=== PATIENT | female | born 1990 | race Caucasian/White ===

== ENCOUNTER → 2016-06-20 | Outpatient (CLI) | payer OTHER ==
[2016-01-31 16:23] VITALS: BP 110/71
[~2016-06-20] MED LIST: ALPR0.5T6 PO; AMPH5TAB PO; HYDR-2666 PO; PENT100C PO; PHEN-318 PO; [UNRECOGNIZED DRUG - CODE] PO; [UNRECOGNIZED DRUG - OTHER]
[2016-06-20 10:05] LABS: BASO # 0.1 x10^3/uL (0.0-0.2); BASO % 1 % (0-3); EOS % 3 % (0-3); HEMATOCRIT 38.7 % (36.0-47.0); HEMOGLOBIN 13.3 g/dL (12.0-15.5); LYMPH # 3.5 x10^3/uL (1.0-4.8); LYMPH % 43 % (24-48); MEAN CORPUSCULAR HEMOGLOBIN 30 pg (25-35); MEAN CORPUSCULAR HGB CONC 34 g/dL (31-37); MEAN CORPUSCULAR VOLUME 87 fL (79-100); MONO % 10 % (0-9); NEUT % 43 % (31-73); PLATELET COUNT 212 x10^3/uL (140-400); RED BLOOD COUNT 4.45 x10^6/uL (3.50-5.40); RED CELL DISTRIBUTION WIDTH 12.3 % (11.5-14.5); WHITE BLOOD COUNT 8.2 x10^3/uL (4.0-11.0)
[2016-06-20 10:40] LABS: FREE T4 1.05 ng/dL (0.76-1.46)
[2016-06-20 11:08] LABS: ALBUMIN 3.6 g/dL (3.4-5.0); ALBUMIN/GLOBULIN RATIO 1.1 (1.0-1.7); CALCIUM 9.1 mg/dL (8.5-10.1); GFR 67.6; POTASSIUM 4.4 mmol/L (3.5-5.1); TOTAL BILIRUBIN 0.2 mg/dL (0.2-1.0); TOTAL PROTEIN 6.9 g/dL (6.4-8.2)
== END | disposition home or self-care (01) ==
LOC: LAB 09:26
PROVIDERS: ATTEND Internal Medicine
DX: R53.83 Other fatigue (principal)
CPT/HCPCS: 36415; 80053; 82306; 82550; 84439; 84443; 85027; 85651

== ENCOUNTER → 2016-10-14 | Outpatient (CLI) | payer OTHER ==
[2016-01-31 16:23] VITALS: BP 110/71
[~2016-10-14] MED LIST changes: -HYDR-2666 PO; +HYDR-2758 PO
[2016-10-14 16:58] LABS: BASO # 0.1 x10^3/uL (0.0-0.2); BASO % 1 % (0-3); EOS % 1 % (0-3); HEMATOCRIT 39.7 % (36.0-47.0); HEMOGLOBIN 13.2 g/dL (12.0-15.5); LYMPH # 3.4 x10^3/uL (1.0-4.8); LYMPH % 32 % (24-48); MEAN CORPUSCULAR HEMOGLOBIN 30 pg (25-35); MEAN CORPUSCULAR HGB CONC 33 g/dL (31-37); MEAN CORPUSCULAR VOLUME 89 fL (79-100); MONO % 10 % (0-9); NEUT % 57 % (31-73); PLATELET COUNT 252 x10^3/uL (140-400); RED BLOOD COUNT 4.45 x10^6/uL (3.50-5.40); RED CELL DISTRIBUTION WIDTH 12.4 % (11.5-14.5); WHITE BLOOD COUNT 10.7 x10^3/uL (4.0-11.0)
[2016-10-14 17:22] LABS: % SAT IRON 21 % (15-34); IRON,SERUM 88 ug/dL (50-170)
[2016-10-14 17:25] LABS: ALBUMIN 3.7 g/dL (3.4-5.0); ALBUMIN/GLOBULIN RATIO 0.9 (1.0-1.7); CALCIUM 8.8 mg/dL (8.5-10.1); CREATININE 0.8 mg/dL (0.6-1.0); GFR 87.4; POTASSIUM 3.9 mmol/L (3.5-5.1); TOTAL BILIRUBIN 0.2 mg/dL (0.2-1.0); TOTAL PROTEIN 7.7 g/dL (6.4-8.2)
[2016-10-14 17:28] LABS: CHOLESTEROL/HDL RATIO 1.9
[2016-10-14 17:31] LABS: FREE T4 0.96 ng/dL (0.76-1.46)
[2016-10-14 17:32] LABS: FOLATE 17.37 ng/ml (3.2-20.0)
[2016-10-15 06:17] LABS: RHEUMATOID FACTOR <10.0 IU/mL (0.0-13.9)
== END | disposition home or self-care (01) ==
LOC: LAB 16:31
PROVIDERS: ATTEND Internal Medicine
DX: R53.83 Other fatigue (principal)
CPT/HCPCS: 36415; 80053; 80061; 82607; 82728; 82746; 83540; 83550; 84439; 84443; 85027; 85651; 86431

== ENCOUNTER → 2016-11-03 | Outpatient (CLI) | payer OTHER ==
[2016-01-31 16:23] VITALS: BP 110/71
[2016-11-03 14:57] LABS: ALBUMIN 3.9 g/dL (3.4-5.0); ALBUMIN/GLOBULIN RATIO 1.2 (1.0-1.7); CALCIUM 8.8 mg/dL (8.5-10.1); CREATININE 0.8 mg/dL (0.6-1.0); GFR 87.4; MAGNESIUM 1.9 mg/dL (1.8-2.4); POTASSIUM 3.8 mmol/L (3.5-5.1); TOTAL BILIRUBIN 0.3 mg/dL (0.2-1.0); TOTAL PROTEIN 7.2 g/dL (6.4-8.2)
== END | disposition home or self-care (01) ==
LOC: LAB 14:21
PROVIDERS: ATTEND Internal Medicine
DX: M62.838 Other muscle spasm (principal)
CPT/HCPCS: 36415; 80053; 83735

== ENCOUNTER → 2016-11-26 | Outpatient (CLI) | payer OTHER ==
[2016-01-31 16:23] VITALS: BP 110/71
[~2016-11-26] MED LIST changes: +ZOLPIDEM 5 MG TABLET. PO ONE
--- NOTE | 2016-11-27 10:07 | SLEEP ---
DATE OF STUDY: 11/26/2016 ATTENDING PHYSICIAN: Dr. Asuncion Loco. Francisca is 26 years old who weighs 137 pounds with a BMI of 25. The patient's [place] score was only 4. Sleep study was performed at [facility] to rule out MARC. During the night study, the patient spent 410 minutes in bed and slept for 319 minutes, with a sleep efficiency of 78%. Sleep latency was prolonged at 92 minutes, with a REM latency of 90 minutes. Overall, sleep architecture showed normal stage 1 sleep, reduced stage 2 sleep, increased slow wave and increased REM sleep. During the night study, the patient had only 1 obstructive apnea. No mixed or central apneas. There were no hypopneas. The patient's apnea-hypopnea index for the entire night was only 2 per hour, supine index 2 per hour and REM index of 4 per hour. Review of nocturnal oximetry study revealed a mean oxygen saturation of 98% with the lowest of 95%. EKG monitoring revealed normal sinus rhythm. No sustained arrhythmias were observed. Average heart rate was 75 beats per minute. PLMS were seen at index of 9 per hour, and 2 per hour caused EEG arousals. Due to low AHI, the patient did not meet the criteria for CPAP initiation. IMPRESSION: 1. No clinically significant sleep disordered breathing. The patient's AHI for the entire night was 2 per hour. 2. Reduced sleep efficiency, resulting from sleep onset insomnia. 3. Mild PLMS without any significant EEG arousals. This does not need to be treated. 4. No significant nocturnal hypoxia. RECOMMENDATIONS: 1. The patient did not meet the split night criteria for CPAP initiation. 2. The patient's PLMS does not need to be treated, unless the patient has symptoms of restless legs during the day. 3. Avoid LYE TREATER depressants. LYRIC CASTRO MD DR: LIBIA/deshaun JOB#: [id number] / [id number] ASUNCION Cohen MD
== END | disposition home or self-care (01) ==
LOC: SLPLAB 18:43
PROVIDERS: ATTEND Internal Medicine
DX: G47.33 Obstructive sleep apnea (adult) (pediatric) (principal)
CPT/HCPCS: 95810

== ENCOUNTER → 2017-04-23 | Outpatient (CLI) | payer OTHER | END | disposition home or self-care (01) | LOC: CT 12:17 | DX: H70.93 Unspecified mastoiditis, bilateral (principal) | CPT/HCPCS: 70486 ==

== ENCOUNTER 2017-07-22 11:49 | Emergency (ER) | payer OTHER ==
[2017-07-22 12:25] LABS: BILIRUBIN,URINE SMALL (NEG); CLARITY,URINE CLEAR; GLUCOSE,URINE NEGATIVE (NEG); NITRITE,URINE POSITIVE (NEG); PROTEIN,URINE NEGATIVE (NEG-TRACE)
[2017-07-22 12:35] LABS: BACTERIA,URINE MANY /HPF (0-FEW); COLOR,URINE ORANGE; SQUAMOUS EPITHELIAL CELL,UR MOD /LPF
[2017-07-22 12:36] LABS: HYALINE CASTS, URINE FEW /HPF
[2017-07-22] MEDS: ONDANSETRON ODT 4 MG TAB.RAPDIS. PO (12:45)
[2017-07-22 12:49] LABS: ADD MAN DIFF? NO
[2017-07-22 12:53] LABS: BASO % 1 % (0-3); EOS # 0.1 x10^3/uL (0.0-0.7); EOS % 1 % (0-3); HEMATOCRIT 31.9 % (36.0-47.0); LYMPH # 2.3 x10^3/uL (1.0-4.8); LYMPH % 26 % (24-48); MEAN CORPUSCULAR HEMOGLOBIN 30 pg (25-35); MEAN CORPUSCULAR HGB CONC 35 g/dL (31-37); MEAN CORPUSCULAR VOLUME 88 fL (79-100); MONO # 0.8 x10^3/uL (0.0-1.1); MONO % 9 % (0-9); NEUT # 5.9 x10^3uL (1.8-7.7); NEUT % 64 % (31-73); PLATELET COUNT 196 x10^3/uL (140-400); RED BLOOD COUNT 3.64 x10^6/uL (3.50-5.40); RED CELL DISTRIBUTION WIDTH 13.2 % (11.5-14.5); WHITE BLOOD COUNT 9.1 x10^3/uL (4.0-11.0)
[2017-07-22 13:04] LABS: ANION GAP 7 (6-14); BLOOD UREA NITROGEN 10 mg/dL (7-20); BUN/CREATININE RATIO 14 (6-20); CALCIUM 8.3 mg/dL (8.5-10.1); CARBON DIOXIDE 25 mmol/L (21-32); CHLORIDE 105 mmol/L (98-107); CREATININE 0.7 mg/dL (0.6-1.0); GFR 101.1; GLUCOSE 81 mg/dL (70-99); POTASSIUM 4.2 mmol/L (3.5-5.1); SODIUM 137 mmol/L (136-145)
[2017-07-22] MEDS: IV NORMAL SALINE 1000ML BAG 1,000 ML IV (13:09)
[2017-07-22] MEDS: ONDANSETRON PF 4 MG/2 ML VIAL. IV (13:09)
[2017-07-22 13:10] LABS: ALBUMIN 2.9 g/dL (3.4-5.0); ALBUMIN/GLOBULIN RATIO 0.9 (1.0-1.7); ALK PHOS 45 U/L (46-116); ALT (SGPT) 15 U/L (14-59); AST (SGOT) 15 U/L (15-37); TOTAL BILIRUBIN 0.3 mg/dL (0.2-1.0); TOTAL PROTEIN 6.2 g/dL (6.4-8.2)
== END 2017-07-22 14:00 | disposition home or self-care (01) ==
LOC: ER 11:49
DX: O26.891 Other specified pregnancy related conditions, first trimester (principal); R39.89 Other symptoms and signs involving the genitourinary system; R30.0 Dysuria; M54.5 Low back pain; Z90.49 Acquired absence of other specified parts of digestive tract; Z88.5 Allergy status to narcotic agent; Z3A.14 14 weeks gestation of pregnancy
CPT/HCPCS: 36415; 76770; 80053; 81001; 85025; 87086; 96361; 96374; 99285-25; J2405; J7030